=== PATIENT | female | born 1940 | race Caucasian/White ===

== ENCOUNTER 2019-01-13 10:09 | Emergency (ER) | payer MEDICARE, OTHER ==
[~2019-01-13] VITALS: Ht 152.4 cm; Wt 77.0 kg
[2019-01-13] MEDS ORDERED: LISINOPRIL20 M1 PO (10:25)
[2019-01-13] MEDS ORDERED: SYNTHROID88 MCG PO (10:25)
[2019-01-13] MEDS ORDERED: HYDROCHLOROT12.5 M1 PO (10:26)
[2019-01-13] MEDS ORDERED: LYRICA50 MG PO (10:26)
[2019-01-13] MEDS ORDERED: AMLODIPINE5 MG PO (10:27)
[2019-01-13] MEDS ORDERED: VESICARE5 MG PO (10:27)
[2019-01-13] MEDS ORDERED: ALEVE220 MG PO (10:28)
[2019-01-13] MEDS ORDERED: DOXYCYC MONO100 M2 PO (10:31)
[2019-01-13] MEDS ORDERED: CHERATUSSIN PO (10:31)
[2019-01-13 10:38] VITALS: BP 139/86
== END 2019-01-13 10:38 | disposition home or self-care (01) ==
LOC: ED 10:09
DX: J06.9 Acute upper respiratory infection, unspecified (principal); I10 Essential (primary) hypertension; E03.9 Hypothyroidism, unspecified; G62.9 Polyneuropathy, unspecified

== ENCOUNTER 2019-02-13 23:48 | Observation (INO) | payer MEDICARE, OTHER ==
[~2019-02-13] VITALS: Ht 152.4 cm; Wt 75.0 kg
[~2019-02-13 23:48] MED LIST: ALEVE220 MG PO; AMLODIPINE5 MG PO; CHERATUSSIN PO; DOXYCYC MONO100 M2 PO; HYDROCHLOROT12.5 M1 PO; LISINOPRIL20 M1 PO; LYRICA50 MG PO; SYNTHROID88 MCG PO; VESICARE5 MG PO
--- NOTE | 2019-02-13 23:54 | NUR ---
PATIENT TO ROOM 14 VIA WHEELCHAIR. UNDRESSED INTO A GOWN. TRIAGE COMPLETED AT BEDSIDE.
[2019-02-14] VITALS (7 sets, daily range): BP systolic 95–124; BP diastolic 52–72
[2019-02-14 00:42] LABS: HEMATOCRIT 46.3 % (37.0-47.0); HEMOGLOBIN 15.4 g/dl (12.0-16.0); IMMATURE GRANULOCYTES 0.9 % (0.0-5.0); MEAN CELL VOLUME 91.9 fL CALC (80.0-100.0); MEAN CORPUSCULAR HGB 30.6 pG CALC (26.0-32.0); MEAN CORPUSCULAR HGB CONC 33.3 g/L CALC (32.0-36.0); NEUT# 17.14 thou/uL (2.00-7.15); RED BLOOD COUNT 5.04 mill/uL (4.20-5.60); RED CELL DISTRI WIDTH 13.2 % (11.5-15.5)
[2019-02-14 00:51] LABS: ALBUMIN 4.1 g/dL (3.2-5.0); ALKALINE PHOSPHATASE 77 u/l (38-126); ANION GAP 17 (6-22 (CALC)); BILIRUBIN, TOTAL 1.3 mg/dL (0.0-1.4); BUN 30 mg/dL (8-23); BUN/CREATININE RATIO 38 (12-20 (CALC)); CARBON DIOXIDE 19 mmol/l (22-30); CHLORIDE 107 mmol/l (95-108); CREATININE 0.8 mg/dL (0.5-1.0); GFR > 60 ML/MIN (>=60 (CALC)); GFR FOR AFR.AMER. > 60 ML/MIN (>=60 (CALC)); POTASSIUM 3.8 mmol/l (3.5-5.1); SGOT/AST 38 u/l (9-36); TOTAL PROTEIN 6.5 g/dL (6.3-8.2)
[2019-02-14 00:58] LABS: ACT PARTIAL THROMBO TIME 24.5 SECONDS (20.0-32.5); INTERNATIONAL NORMALIZED RATIO 1.1 RATIO (0.7-1.3)
--- NOTE | 2019-02-14 01:00 | NUR ---
W/D SKIN NO C/O PAIN NOR BLEEDING
[2019-02-14 01:01] LABS: SODIUM 139 mmol/l (137-146)
--- NOTE | 2019-02-14 02:15 | NUR ---
NO N/V NO OCC BLEEDING W/P/D SKIN TAKES SIPS OF WATER PO
[2019-02-14 02:45] LABS: URINE BILIRUBIN - DIPSTICK NEGATIVE (NEGATIVE); URINE BLOOD DIPSTICK TRACE-LYSED (NEGATIVE); URINE COLOR YELLOW; URINE GLUCOSE - DIPSTICK NEGATIVE (NEGATIVE); URINE KETONE NEGATIVE (NEGATIVE); URINE LEUK ESTERASE NEGATIVE (NEGATIVE); URINE NITRITE - DIPSTICK NEGATIVE (Negative); URINE PROTEIN - DIPSTICK NEGATIVE (NEG-TRACE); URINE UROBILINOGEN - DIPSTICK 0.2 E.U./dL (0.2)
--- NOTE | 2019-02-14 03:05 | NUR ---
PHONE REPORT TO NURSE COURTNEY ON MS2
--- NOTE | 2019-02-14 03:10 | NUR ---
TO MS RM 270 VIA STRETCHER IN STABLE CVONDITION
--- NOTE | 2019-02-14 04:00 | NUR ---
PATIENT ADMITTED FROM ER VIA STRETCHER WITH ER STAFF AND INATTENDANCE. PATIENT ASSISTED FROM STRETCHER TO THE STANDING SCALE AND THEN TO BED. PATIENT IS AWAKE ALERT AND ORIENTEDX3. SLIGHTLY YOCHA DEHE AND WEAR HEARING AID TO LEFT EAR. IV SITE TO RIGHT FOREARM IN PLACE-SITE IS HEALTHY AND IVF NS HUNG AND INFUSING AT 125CC/HR. PATIENT WITH POSS HISTORY OF MRSA-NASAL SWAB OBTAINED AND SENT TO LAB. PATIENT PLACED ON CONTACT PRECAUTIOS. PATIENT CAME TO ER TONIGHT AFTER HAVING LOOSE BM'S WITH BLOOD FOR 2 DAYS. PATIENT IS SNOWBIRD AND SCHEDULED TO GO BACK TO [place]. PATIENT WITH ALLERGY TO MORPHINE. ORIENTED TO ROOM AND SURROUNDINGS. INSTRUCTED ON USE OF NURSE CALL LIGHT SYSTEM, TV REMOTE AND PHONE. SAFETY PRECAUTIONS REINFORCED. CALL LIGHT IN REACH. WILL CONT TO MONITOR.
--- NOTE | 2019-02-14 07:55 | NUR ---
PT SITTING ON SIDE OF BED, NO SIGNS OF DISTRESS NOTED, RESP EVEN AND UNLABORED. DISCUSSED POC, PT STATES SHE DOES NOT FEEL WELL AND DOES NOT WANT TO EAT HER BREAKFAST, VITALS OBTAINED. ASSESSMENT COMPLETED, CALL LIGHT IN REACH,CONTINUE TO MONITOR.
--- NOTE | 2019-02-14 08:50 | NUR ---
PT C/O DIZZYNESS, INFORMED PT OF ORTHOSTATIC BP, PT IN AGREEMENT. PT IS RESTING IN BED, ORHOSTATIC BP OBTAINED, PT TOLERATED WELL. QUALITY CONTROL TESTER SHOWN RESULTS OF BP'S.CALL LIGHT IN REACH,CONTINUE TO MONITOR.
--- NOTE | 2019-02-14 09:45 | NUR ---
INFORMED PT OF NPO STATUS, PT IN AGREEMENT. ALSO INFORMED PT THAT SHE WILL TAKEN DOWN TO RADIOLOGY FOR CT AND CXT, PT IN AGREEMENT. CALL LIGHT IN REACH,CONTINUE TO MONITOR.
--- NOTE | 2019-02-14 11:47 | NUR ---
PT TAKEN TO RADIOLOGY FOR CT AND CXR VIA WHEELCHAIR ACCOMPANIED BY BLUE PRINT CONTROL CLERK. CONTINUE TO MONITOR.
[2019-02-14 13:42] LABS: C. DIFFICILE TOXIN A&B NEGATIVE (NEGATIVE)
--- NOTE | 2019-02-14 14:00 | NUR ---
PT RESTING IN BED, SPOKE WITH MD, PER PT SHE MAY HAVE WATER. CONFIRMED. WATER PROVIDED TO PT.
--- NOTE | 2019-02-14 16:00 | NUR ---
PT RESTING IN BED, AT BEDSIDE, CIPRO INITIATED. PT VOICES NO NEEDS OR COMPLAINTS AT THIS TIME. CALL LIGHT IN REACH,CONTINUE TO MONITOR.
--- NOTE | 2019-02-14 20:00 | NUR ---
PATIENT APPEARS SLEEPING POSITIONED ON LEFT SIDE WITH EYES CLOSED. RESP ARE EVEN AND UNLABORED. PATIENT IS NPO AT THIS TIME. IVF NS PATENT AND INFUSING AT 125CC/HR. VIA LEFT FOREARM SITE. SITE APPEARS HEALTHY AT THIS TIME.PATIENT ON CONTACT PRECAUTIONS FOR POSS HX OF MRSA. CALL LIGHT IN REACH. WILL CONT TO MONITOR
[2019-02-15] VITALS (7 sets, daily range): BP systolic 113–140; BP diastolic 58–77
--- NOTE | 2019-02-15 | NUR ---
PATIENT ASSISTED TO THE BR TO VOID QS DEDRA URINE. NO STOOL SO FAR TONIGHT. IVF PATENT AND INFUSING AT 125CC/HR VIA LEFT FOREARM SITE. SITE REMAINS HEALTHY AT THIS TIME. NPO AT THIS TIME. SAFETY PRECAUTIONS REINFORCED. CALL LIGHT IN REACH. WILL CONT TO MONITOR.
--- NOTE | 2019-02-15 05:00 | NUR ---
ORTHOSTATIC VS TAKEN AND RECORDED ORDERED. PATIENT STATES SLIGHT DIZZINESS WHEN GOING FROM SITTING TO STANDING. ASSISTED BACK INTO BED. CALL LIGHT IN REACH. WILL CONT TO MONITOR.
[2019-02-15 05:05] LABS: IMMATURE GRANULOCYTES 0.8 % (0.0-5.0); MEAN CELL VOLUME 90.5 fL CALC (80.0-100.0); MEAN CORPUSCULAR HGB 30.8 pG CALC (26.0-32.0); MEAN CORPUSCULAR HGB CONC 34.1 g/L CALC (32.0-36.0); PLATELET COUNT 167 thou/uL (130-400); RED BLOOD COUNT 4.09 mill/uL (4.20-5.60); RED CELL DISTRI WIDTH 13.2 % (11.5-15.5)
[2019-02-15 05:38] LABS: ANION GAP 11 (6-22 (CALC)); BUN 11 mg/dL (8-23); BUN/CREATININE RATIO 21 (12-20 (CALC)); CARBON DIOXIDE 21 mmol/l (22-30); CHLORIDE 110 mmol/l (95-108); CREATININE 0.5 mg/dL (0.5-1.0); GFR > 60 ML/MIN (>=60 (CALC)); GFR FOR AFR.AMER. > 60 ML/MIN (>=60 (CALC)); SODIUM 139 mmol/l (137-146)
[2019-02-15 05:42] LABS: BAND 1 % (0-8); HEMOGLOBIN 12.6 g/dl (12.0-16.0); MANUAL DIFFERENTIAL YES
--- NOTE | 2019-02-15 08:00 | NUR ---
SHIFT CHANGE REPORT, PT AWAKE ALERT AND ORIENTED AMBULATING TO BE AT THIS TIME, DENIES PAIN, ALL NEEDS ADDRESSED, CALL [place] IN REACH.
--- NOTE | 2019-02-15 12:00 | NUR ---
RESTING IN BED NO C/O DISCOMFORT.
--- NOTE | 2019-02-15 16:00 | NUR ---
DR JOE ROUNDED, STATED HE CONTACTED DR JENSEN WHO WILL BE CONSULTING WITH PT THIS AFTERNOON, PT ALSO INFORMED. ALSO SAID PT MAY HAVE SMALL SIPS H2O UNTIL SEEN BY CONSULTING MD, WILL CONTINUE TO MONITOR.
--- NOTE | 2019-02-15 19:30 | NUR ---
PATIENT RESTING IN BED AT THIS TIME-EASY TO AROUSE. ALERT AND ORIENTEDX3. PATIENT DENIES ANY PAIN. NO N/V. IVF AND INFUJSING AT 125CC/HR. SITE REMAINS HEALTHY AT THIS TIME. PATIENT REMAINS NPO ORDERED. CALL LIGHT IN REACH. WILL CONT TO MONITOR.
--- NOTE | 2019-02-16 | NUR ---
PATIENT RESTING IN BED-APPEARS SLEEPING AT THIS TIME. RESP ARE EVEN AND UNLABORED. IVF NS PATENT AND INFUSING VIA RIGHT ARM. CALL LIGHT IN REACH.WILL CONT TO MONITOR.
--- NOTE | 2019-02-16 04:08 | NUR ---
PATIENT RESTING IN BED-STATES THAT HER ABD IS FEELING BETTER-NOT SORE IT HAS BEEN. STATES PASSING FLATUS BUT NO STOOL OR BLOOD. NHI HUNG ORDERED. CALL LIGHT IN REACH.WILL CONT TO MONITOR.
[2019-02-16 04:20] VITALS: BP 130/57
--- NOTE | 2019-02-16 08:02 | NUR ---
ASSESSMENT DONE. PT IS A&O X3. PT DENIES PAIN AT THIS TIME. RESPS EVEN AND UNLABORED. IVF INFUSING WELL. PT DENIES ANY NEEDS AT THIS TIME. CALL LIGHT IN REACH.
[2019-02-16 08:38] VITALS: BP 140/62
--- NOTE | 2019-02-16 10:00 | NUR ---
DR. TANNER AT BEDSIDE TO DISCUSS POC WITH PT.
--- NOTE | 2019-02-16 12:02 | NUR ---
PT IS RESTING IN BED AND DENIES NEEDS AT THIS TIME. CALL LIGHT IN REACH.
--- NOTE | 2019-02-16 14:22 | NUR ---
PT STATED HAS NAUSEA. MEDICATED PT WITH ZOFRAN SEE EMAR. PT DENIES ANY OTHER NEEDS AT THIS TIME. IN ROOM. CALL LIGHT IN REACH.
[2019-02-16 15:17] VITALS: BP 131/63
--- NOTE | 2019-02-16 16:20 | NUR ---
PT STATED THE ZOFRAN HELPED. PT IS RESTING ON HER LEFT SIDE. PT DENIES ANY OTHER NEEDS AT THIS TIME. CALL LIGHT IN REACH.
[2019-02-16 19:00] VITALS: BP 118/64
--- NOTE | 2019-02-16 20:00 | NUR ---
PATIENT RESTING IN BED-AWAKE ALERT AND ORIENTEDX3. PATIENT STATES THAT SHE FINISHED [place] OF MAG AND HAVING FREQUET LOOSE STOOLS. NO BLOOD AT THIS TIME. PATIENTIS NOW ON CLEAR LIQUIDS-INSTRUCTED WITH NPO AFTER MIDNIGHT FOR COLONOSCOPY IN AM WITH DR. JENSEN. IV SITE TO RIGHT AC INTACT AND IS HEALTHY AT THIS TIME. SAFETY PRECAUTIONS REINFORCED. CALL LIGHT IN REACH. WILL CONT TO MONITOR.
--- NOTE | 2019-02-16 20:52 | NUR ---
PATIENT RESTING IN BED-ATATES THAT SHE IS ONLY PASSING LIQUID LIGHT BROWN STOOL AT THIS TIME-NO BLOOD. CONSENT FOR COLONOSCOPY SIGNED. CALL LIGHT IN REACH. WILL CONT TO MONITOR.
--- NOTE | 2019-02-16 23:37 | NUR ---
APPEARS SLEEPING AT THIS TIME-EYES CLOSED AND POSITIONED ON HER SIDE. RESP ARE EVEN AND UNLABORED. CALL LIGHT IN REACH. WILL CONT TO MONITOR.
[2019-02-17] VITALS (11 sets, daily range): BP systolic 110–159; BP diastolic 60–88
--- NOTE | 2019-02-17 04:45 | NUR ---
PATIENT APPEARS SLEEPING AT THIS TIME-RESP ARE EVEN AND UNLABORED. CIPRO INFUSING ORDERED. NPO FOR COLONOSCOPY TODAY. CONSENT SIGNED. CALL LIGHT IN REACH. WILL CONT TO MONITOR.
[2019-02-17 06:03] LABS: HEMATOCRIT 39.1 % (37.0-47.0); HEMOGLOBIN 13.1 g/dl (12.0-16.0); IMMATURE GRANULOCYTES 0.3 % (0.0-5.0); MEAN CELL VOLUME 90.7 fL CALC (80.0-100.0); MEAN CORPUSCULAR HGB 30.4 pG CALC (26.0-32.0); MEAN CORPUSCULAR HGB CONC 33.5 g/L CALC (32.0-36.0); PLATELET COUNT 216 thou/uL (130-400); RED BLOOD COUNT 4.31 mill/uL (4.20-5.60)
[2019-02-17 06:34] LABS: ALKALINE PHOSPHATASE 52 u/l (38-126); ANION GAP 12 (6-22 (CALC)); BILIRUBIN, TOTAL 0.8 mg/dL (0.0-1.4); BUN 7 mg/dL (8-23); BUN/CREATININE RATIO 15 (12-20 (CALC)); CARBON DIOXIDE 21 mmol/l (22-30); CHLORIDE 113 mmol/l (95-108); CREATININE 0.5 mg/dL (0.5-1.0); GFR > 60 ML/MIN (>=60 (CALC)); GFR FOR AFR.AMER. > 60 ML/MIN (>=60 (CALC)); MAGNESIUM 2.4 mg/dL (1.6-2.3); SGOT/AST 30 u/l (9-36); SODIUM 142 mmol/l (137-146)
[2019-02-17 06:39] LABS: BAND 0 % (0-8); MANUAL DIFFERENTIAL YES
[2019-02-17 06:40] LABS: ALBUMIN 2.9 g/dL (3.2-5.0)
--- NOTE | 2019-02-17 08:15 | NUR ---
REPORT WAS RECEIVED FROM COURTNEY. ASSESSMENT DONE. RESPS EVEN AND UNLABORED. PT IS A&O X3. PT DENIES PAIN AT THIS TIME. PT NPO. #[id number] RAC THAT APPEARS HEALTHY. PT DENIES ANY NEEDS AT THIS TIME. SAFETY PRECAUTIONS REINFORCED AND CALL LIGHT IN REACH.
--- NOTE | 2019-02-17 11:10 | NUR ---
PT WENT VIA STRETCHER TO OR BY JEREMÍAS GARCIA.
--- NOTE | 2019-02-17 13:26 | NUR ---
PT CAME VIA STRETCHER. REPORT RECEIVED FROM SEDRAS. PT IS IN THE BATHROOM. PT DENIES PAIN . IN ROOM. CALL LIGHT IN REACH.
--- NOTE | 2019-02-17 16:16 | NUR ---
PT IS SITTIG IN THE SIDE OF THE BED WITH NO S/S OF DISTRESS NOTED. PT DENIES NEEDS AT THIS TIME. CALL LIGHT IN REACH.
--- NOTE | 2019-02-17 19:00 | NUR ---
REPORT FROM LAKESHIA VERONICA. PT RESTING IN BED. ALERT AND ORIENTED. PT DENIES ANY PAIN OR DISCOMFORT. ABD DISTENDED WITH HYPERACTIVE BOWEL SOUNDS X4 QUADRANTS NOTED. IV SITE APPEARS HEALTHY. DISCUSSED POC. PT VERBALIZED UNDERSTANDING. CALL LIGHT WITHIN REACH. WILL CONTINUE TO MONITOR.
--- NOTE | 2019-02-17 23:45 | NUR ---
PT RESTING IN BED WITH EYES CLOSED. NO S/S OF DISTRESS NOTED. CALL LIGHT WITHIN REACH. WILL CONTINUE TO MONITOR.
[2019-02-18 00:15] VITALS: BP 117/63
--- NOTE | 2019-02-18 03:25 | NUR ---
PT ASSISTED TO BATHROOM, PT VOIDED WITHOUT DIFFICULTY. PT DENIES ANY NAUSEA OR DISCOMFORT AT THIS TIME. ASSISTED BACK TO BED. CALL LIGHT WITHIN REACH. WILL CONTINUE TO MONITOR.
[2019-02-18 04:35] VITALS: BP 141/76
[2019-02-18 08:00] VITALS: BP 119/69
--- NOTE | 2019-02-18 08:00 | NUR ---
ASSESSMENT IS COMPLETED; IV SITE IS FREE FROM REDNESS OR EDEMA. HR IS REG,PULSES ARE STRONG X4, ABD IS SOFT WITH ACTIVE BS. BREATH SOUNDS ARE CLEAR, BILATERALLY. CONTINUE TO OSEBRVE AND MONITOR.
[2019-02-18 08:41] VITALS: BP 119/69
--- NOTE | 2019-02-18 12:00 | NUR ---
PT IS RELAXING IN BED WITH NO DISTRESS NOTED. IV SITE IS FREE FROM REDNESS OR EDEMA
--- NOTE | 2019-02-18 13:15 | NUR ---
DISCHARGE INSTRUCTIONS GIVEN TO PT IV SITE DISCONTINEUD CATHETER INTACT. NO REDNESS OR EDEMA. WAITIMG ON TO COME BACK. CONTINUE TO OBSERVE AND MONITOR.
--- NOTE | 2019-02-18 14:13 | NUR ---
PT IS READY FOR DISCHARGE. IV SITE DISCONTINUED CATHETER INTACT. ALL PAPERS GIVEN FAMILY IN THE ROOM.
--- NOTE | 2019-02-18 14:16 | NUR ---
Discharge instructions given. Patient verbalizes understanding of same. Discharged in stable condition via Wheelchair to Home with family. All belongings sent with pt.
== END 2019-02-18 14:16 | disposition home or self-care (01) ==
LOC: ED 23:48 → ED-I 02-14 00:18 → ED 02-14 02:26 → MS2 02-14 02:27
PROVIDERS: Family Medicine; Internal Medicine Nephrology; Nurse Practitioner Family; ADMIT Internal Medicine; ATTEND Internal Medicine
PROC: 0DBL8ZX Excision of Transverse Colon, Via Natural or Artificial Opening Endoscopic, Diagnostic (ICD-10-PCS; principal; 2019-02-17)
DX: K55.031 Focal (segmental) acute (reversible) ischemia of large intestine (principal); K57.30 Diverticulosis of large intestine without perforation or abscess without bleeding; D17.5 Benign lipomatous neoplasm of intra-abdominal organs; I10 Essential (primary) hypertension; E03.9 Hypothyroidism, unspecified; G62.9 Polyneuropathy, unspecified; M48.00 Spinal stenosis, site unspecified; I95.9 Hypotension, unspecified; N20.0 Calculus of kidney
CPT/HCPCS: Q9967